=== PATIENT | male | born 1970 | race Caucasian/White ===

== ENCOUNTER → 2024-11-03 | Outpatient (CLI) | payer OTHER, SELFPAY ==
--- NOTE | 2024-11-03 10:50 | HMCIMG ---
Exam Type: US ABDOMINAL COMPLETE Clinical Information: Abdominal distension Comparison: None Findings: The liver shows increased echogenicity consistent with fatty liver infiltration and is enlarged. The liver measures 17 cm in length. Doppler evaluation shows patent portal and hepatic veins. The gallbladder shows cholelithiasis. No acute or chronic inflammatory changes are seen. The gallbladder wall thickness is 2 mm. No bile duct dilatation is noted. The common bile duct measures 5 mm. The right kidney measures 13.2 x 6.2 cm. The left kidney measures 14.3 x 5.2 cm. Mild bilateral hydronephrosis. Simple cysts of the left kidney. No hydronephrosis or renal calculi are seen. There are no renal masses. The pancreas is suboptimally visualized. The spleen is unremarkable. The aorta and inferior vena cava show no significant abnormalities. IMPRESSION: Findings consistent with cholelithiasis.
== END | disposition home or self-care (01) ==
LOC: RAH 08:54
PROVIDERS: ATTEND Family Medicine
DX: K80.20 Calculus of gallbladder without cholecystitis without obstruction (principal); N28.1 Cyst of kidney, acquired; N13.30 Unspecified hydronephrosis; R60.0 Localized edema; R14.0 Abdominal distension (gaseous); R06.02 Shortness of breath; R19.37 Generalized abdominal rigidity; R10.84 Generalized abdominal pain
CPT/HCPCS: 76700

== ENCOUNTER → 2024-12-09 | Outpatient (CLI) | payer OTHER ==
[~2024-12-09] MED LIST: PHEN-846 PO
--- NOTE | 2024-12-09 13:36 | HMCIMG ---
Exam Type: US RENAL SONOGRAM Clinical Information: DISORDERS OF KIDNEY Comparison: None Findings: Examination shows normal renal size and echogenicity bilaterally. Preserved cortical thickness and corticomedullary junction region is seen. No calculi are seen. Bilateral moderate hydronephrosis. No renal masses are seen. There is no evidence of perinephric fluid on either side. No evidence of significant ureteral dilatation is seen. The right kidney measures 12 x 5 cm. The left kidney measures 11.9 x 6.3 cm. The prostate is enlarged measuring 67 cc and the urinary bladder is enlarged in post void state, consistent with urinary bladder urine retention. Prevoid volume 1367 cc. Postvoid volume 1194 cc. IMPRESSION: Bilateral hydronephrosis probably caused by an enlarged prostate causing bladder outlet obstruction.
== END | disposition home or self-care (01) ==
LOC: RAH 11:37
PROVIDERS: ATTEND Family Medicine
DX: N13.30 Unspecified hydronephrosis (principal); N40.0 Benign prostatic hyperplasia without lower urinary tract symptoms; N32.89 Other specified disorders of bladder; N28.9 Disorder of kidney and ureter, unspecified
CPT/HCPCS: 76770

== ENCOUNTER 2024-12-16 14:36 | Emergency (ER) | payer OTHER, MEDICAID ==
[~2024-12-16] VITALS: Ht 172.7 cm; Wt 87.5 kg
--- NOTE | 2024-12-16 14:48 | ERN ---
General Chief Complaint: Urinary Retention Stated Complaint: KIDNEY PROBLEMS REFERRED BY DOCTOR Time Seen by MD: 14:37 Source: patient History of Present Illness Initial Comments pt a 54-year-old gentleman coming in to be evaluated for problems urinating. Per patient he was referred over by Dr. Pozo his PCP. Per Dr. Pozo patient has been struggling to urinate. Allergies: Coded Allergies: Penicillins (Unverified Allergy, Unknown, 12/16/24) ROS Dictation CONSTITUTIONAL: No chills, no fever, no weakness, no diaphoresis, no malaise. HEAD/FACE: No signs of trauma. EENT: No eye pain, no blurred vision, no tearing, no double vision, no ear pain, no ear discharge, no nose pain, no nasal congestion, no throat pain, no throat swelling, no mouth pain. RESPIRATORY: No cough, no orthopnea, no SOB, no stridor, no wheezing. CARDIOVASCULAR: No chest pain, no edema, no palpitations, no syncope. GASTROINTESTINAL/ABDOMINAL: No abdominal pain, no constipation, no diarrhea, no nausea, no vomiting. GENITOURINARY: No abnormal discharge, no dysuria, no frequent urination, no hematuria. No complaints of pain in the genitals. MUSCULOSKELETAL: No back pain, no gout, no joint pain, no joint swelling, no muscle pain, no muscle stiffness, no neck pain. INTEGUMENTARY: No change in color, no change in hair/nails, no dryness, no lesion, no lumps, no rash. NEUROLOGICAL/PSYCH: No anxiety, not depressed, no emotional problem, no headache, no numbness, no pre-existing deficit, no history of seizures, no tremors, no weakness. HEMATOLOGIC/LYMPHATIC: Not anemic, no history of blood clots, no apparent bleeding, no bruising, glands not swollen. All Systems Negative, Except as Noted. Physical Exam Physical Exam Dictation VITAL SIGNS: Reviewed. GENERAL APPEARANCE: Alert, oriented x3, no acute distress, obese. HEAD AND FACE: Non-traumatic. EYES: PERRL, pink conjunctivas, eyelid no trauma, anterior chamber clear. EARS: Pinnas intact and no signs of trauma or erythema. Ear canals clear and no discharge. TMs no erythema. NOSE: No discharge, no bleeding. OROPHARYNX: Mouth normal, teeth no caries, tongue pink. Pharynx clear, no erythema. Tonsils no exudates, no abscesses noted. Mucous membrane moist. NECK: Supple, non-tender, no thyromegaly, no masses, no JVD, no bruits. BREAST: Deferred. CHEST: No tenderness, no crepitus, no paradoxical movement, no retractions. LUNGS: Clear, well-ventilated, symmetric, no rales, no wheezing, no rhonchi, no stridor, good breath sounds bilaterally. HEART: Regular rate, regular rhythm, no murmur, no gallops. VASCULAR: No peripheral edema. ABDOMEN: Soft, positive bowel sounds, nondistended, no guarding, nontender, no rebound, no masses no hepatomegaly, no splenomegaly, no White's sign, no hernias. RECTAL: Deferred. GENITAL: Deferred. NEUROLOGICAL: Normal speech, gross motor function intact, gross sensory function intact. MUSCULOSKELETAL: Neck nontender, full range of motion, back nontender, full range of motion. EXTREMITIES: Nontender, full range of motion. SKIN: Color pink, dry, no turgor, no rash, no lacerations, no abrasions, no contusions. LYMPHATICS: Deferred. Results Laboratory and Microbiology Lab and Micro Result Laboratory Tests Test 12/16/24 16:30 Urine Color COLORLESS (YELLOW) Urine Appearance CLEAR (CLEAR) Urine pH 5.0 (5.0-8.0) Urine Specific [place] 1.007 (1.001-1.031) Urine Protein NEGATIVE mg/dL (NEGATIVE) Urine Glucose (UA) NEGATIVE mg/dL (NEGATIVE) Urine Ketones NEGATIVE mg/dL (NEGATIVE) Urine Occult Blood NEGATIVE (NEGATIVE) Urine Nitrate NEGATIVE (NEGATIVE) Urine Bilirubin NEGATIVE mg/dL (NEGATIVE) Urine Urobilinogen 0.2 mg/dL (0.2-1.0) Urine Leukocyte Esterase NEGATIVE Rody/uL Urine RBC 0-1 /HPF (0-1) Urine WBC 2-5 /HPF (0-1) H Urine Bacteria None /HPF (None Seen) MDM MDM: Differential diagnosis: URINARY RETENTION, PROSTATITIS, PATIENT IS A 54-YEAR-OLD GENTLEMAN SENT IN BY PCP DUE TO URINE RETENTION. ON BLADDER SCAN PATIENT DID PRESENT WITH 1 L OF URINE IN THE BLADDER. GALLO CATHETER WAS INSERTED GOOD OUTPUT WAS ACHIEVED. PATIENT WILL BE DISCHARGED IN STABLE CONDITION WITH A DIAGNOSIS OF URINARY RETENTION. I DID NOT ADVISED HIM APPROPRIATE FOLLOW UP WIT PCP AND OR UROLOGIST IN THE TIME ALLOTTED. ED Course Orders Procedure Category Date Status Time Urinalysis Profile LAB 12/16/24 Complete 17:05 Vital Signs Date Time Temp Pulse Resp B/P (MAP) Pulse Ox O2 Delivery O2 Flow Rate FiO2 12/16/24 14:42 98.2 56 16 169/70 98 Room Air DX & DISP Disposition: Discharge Departure Impression: Primary Impression: Urine retention Condition: Stable Additional Instructions: FOLLOW-UP WITH PRIMARY CARE PROVIDER IN 1 TO 2 DAYS. TAKE MEDICATIONS DIRECTED HERE IN THE EMERGENCY ROOM. OKAY TO CONTINUE HOME MEDICATIONS UNLESS OTHERWISE DISCUSSED DURING YOUR VISIT IN THE EMERGENCY ROOM TODAY. RETURN TO YOUR NEAREST EMERGENCY ROOM IF SYMPTOMS WORSEN OR IF THERE IS NO IMPROVEMENT. CALL 911 IF YOU NEED IMMEDIATE ASSISTANCE. TAKE TYLENOL [id number] NEEDED AND IF NO CONTRAINDICATIONS ARE PRESENT. INCREASE ORAL HYDRATION. A WOUND CULTURE OR URINE CULTURE WAS ORDERED HERE IN THE EMERGENCY ROOM DEPARTMENT PLEASE FOLLOW-UP WITH PRIMARY CARE PROVIDER AND ADVISE THEM TO GET REPEAT PORTS FROM OUR FACILITY. IF YOU HAD ANY [place] WRAP/SPLINTS THAT WERE APPLIED HERE, PLEASE DO NOT REMOVE THEM UNTIL YOU SEE YOUR PRIMARY CARE OR SPECIALTY. REFERRALS: Referrals: THOR POZO MD (PCP) NUVIA DÍAZ MD Time of Disposition: 17:38 МАРИНА PHILLIPS MD Dec 16, 2024 14:48
[2024-12-16 17:16] LABS: APPEARANCE,URINE CLEAR (CLEAR); BILIRUBIN,URINE NEGATIVE (NEGATIVE); COLOR,URINE COLORLESS (YELLOW); GLUCOSE, URINE (UA) NEGATIVE (NEGATIVE); KETONES,URINE NEGATIVE (NEGATIVE); LEUKOCYTE ESTERASE ,URINE NEGATIVE Leu/uL (NEGATIVE); NITRATE,URINE NEGATIVE (NEGATIVE); OCCULT BLOOD,URINE NEGATIVE (NEGATIVE); PROTEIN,URINE NEGATIVE (NEGATIVE); UROBILINOGEN,URINE 0.2 mg/dL (0.2-1.0)
[2024-12-16 17:24] LABS: ADD UA MICROSCOPIC YES
[2024-12-16 17:26] LABS: RBC,URINE 0-1 /HPF (0-1)
[2024-12-16 17:45] VITALS: BP 160/66; PULSE 16; RESP 16; TEMP 98.2; O2SAT 98
[2024-12-16] MEDS ORDERED: PHEN-846 PO (18:17)
== END 2024-12-16 17:59 | disposition home or self-care (01) ==
LOC: EDH 14:36
DX: R33.9 Retention of urine, unspecified (principal); Z88.0 Allergy status to penicillin
CPT/HCPCS: 51702; 81001; 99284

== ENCOUNTER → 2025-01-16 | Outpatient (CLI) | payer OTHER ==
[~2025-01-16] MED LIST changes: +AMIO200T44 PO; +ASPI-1005 PO; +ERGO500093 PO; +FINA-37 PO; +MULT-1082 PO; -PHEN-846 PO; +POTA-202 PO; +SIMV-43 PO; +TAMS-55 PO
== END | disposition home or self-care (01) ==
LOC: SHCH 08:03
PROVIDERS: ATTEND Internal Medicine Cardiovascular Disease
DX: I08.8 Other rheumatic multiple valve diseases (principal); I13.0 Hypertensive heart and chronic kidney disease with heart failure and stage 1 through stage 4 chronic kidney disease, or unspecified chronic kidney disease; I50.20 Unspecified systolic (congestive) heart failure; N18.4 Chronic kidney disease, stage 4 (severe)
CPT/HCPCS: 93306

== ENCOUNTER → 2025-03-12 | Outpatient (CLI) | payer OTHER ==
[2025-03-12 12:14] LABS: BASOPHILS # (AUTO) 0.04 K/uL (0.00-0.20); BASOPHILS % (AUTO) 0.6 % (0.0-5.0); EOSINOPHILS # (AUTO) 0.13 K/uL (0.00-0.70); EOSINOPHILS % (AUTO) 1.9 % (0.0-8.0); HEMATOCRIT 38.9 % (42-54); IMMATURE GRANULOCYTE ABSOLUTE 0.05 K/uL (0-1); LYMPHOCYTES # (AUTO) 1.6 K/uL (1.0-4.8); LYMPHOCYTES % (AUTO) 22.8 % (21.0-51.0); MEAN CORPUSCULAR HEMOGLOBIN 29.7 pg (27.0-33.0); MEAN CORPUSCULAR HGB CONC 33.7 g/dL (32.0-36.0); MEAN CORPUSCULAR VOLUME 88.2 fL (79-99); MONOCYTES # (AUTO) 0.5 K/uL (0.1-1.0); NEUTROPHILS # (AUTO) 4.6 K/uL (1.8-7.7); PLATELET COUNT (AUTO) 238 K/uL (130-400); RED BLOOD CELL COUNT(AUTO) 4.41 MIL/uL (4.50-6.20); RED CELL DISTRIBUTION WIDTH 11.9 % (11.0-15.5); WHITE BLOOD COUNT (AUTO) 6.9 K/uL (4.8-10.8)
[2025-03-12 12:24] LABS: CREATININE 1.1 mg/dL (0.5-1.3); POTASSIUM 3.9 mmol/L (3.5-5.1)
== END | disposition home or self-care (01) ==
LOC: LAB 11:34
PROVIDERS: ATTEND Urology
DX: N13.39 Other hydronephrosis (principal); R33.9 Retention of urine, unspecified
CPT/HCPCS: 36415; 80048; 85025

== ENCOUNTER → 2025-03-20 | Outpatient (CLI) | payer OTHER ==
[~2025-03-20] MED LIST changes: +IOHEXOL-350 75 ML VIAL IV ONE
--- NOTE | 2025-03-20 14:00 | HMCIMG ---
US SCROTUM & CONTENTS HISTORY: Inflammatory disorder of the scrotum COMPARISON: None TECHNIQUE: Duplex scrotal ultrasound study was performed. FINDINGS: The right testes measures 4.3 x 2.1 x 3.2 cm. The left testes measures 3.5 x 2.4 x 3.3 cm. No evidence of intratesticular mass or abnormal calcification is seen. Left epididymis is not visualized. There is cystic structure adjacent to the left testes. Normal flow is demonstrated in the testes and epididymides bilaterally. Mild left hydrocele and minimal right hydrocele is seen.. There is right epididymal tail cyst measures 7 mm. IMPRESSION: 1. No evidence of intratesticular mass is seen. 2. Normal flow is demonstrated of both testes.
--- NOTE | 2025-03-20 16:02 | HMCIMG ---
CT ABDOMEN/PELVIS W/WO CONTRAS HISTORY: Retention of urine COMPARISON: None TECHNIQUE: Multiple sequential axial images of the abdomen and pelvis were obtained from the dome of the diaphragm through symphysis pubis. Patient was given 75 cc of Omnipaque through intravenous route. Oral contrast was not given. FINDINGS: No pleural effusion is seen bilaterally. There is no evidence of parenchymal disease or pulmonary nodule of the visualized lower lungs. Degenerative changes of the thoracolumbar spine are present. The heart is not enlarged. The liver, spleen, adrenal glands and pancreas are unremarkable. There is no evidence of hydronephrosis bilaterally. There is simple left renal cyst measuring 4 x 5 cm. No evidence of renal stone is seen. Fecal material is seen in the colon. There are normal size retroperitoneal and mesenteric lymph nodes. No ascites is seen. Atherosclerotic changes are present. Pelvic sidewalls are symmetric bilaterally. Bladder is poorly distended with Henry catheter. Complex material is seen within the bladder. If needed, urinalysis correlation is helpful. Prostate gland appears to be enlarged and heterogeneous measuring 5.7 x 4.7 cm. IMPRESSION: 1. Bladder is poorly distended with Henry catheter. Complex material is seen within the bladder. If needed, urinalysis correlation is helpful. Simple renal cysts. CT was performed with one or more following dose reduction techniques: automated exposure control, adjustment of the mA and kv according to patient's size, or use of a iterative reconstruction technique.
== END | disposition home or self-care (01) ==
LOC: RAH 10:40
PROVIDERS: ATTEND Urology
DX: N28.1 Cyst of kidney, acquired (principal); N50.3 Cyst of epididymis; N49.2 Inflammatory disorders of scrotum; N32.89 Other specified disorders of bladder; N43.2 Other hydrocele; N13.39 Other hydronephrosis; M47.815 Spondylosis without myelopathy or radiculopathy, thoracolumbar region; R33.9 Retention of urine, unspecified
CPT/HCPCS: 74178; 76870; Q9967